=== PATIENT | male | born 1980 | race Caucasian/White ===

== ENCOUNTER 2021-01-14 00:15 | Emergency (ER) | payer OTHER, SELFPAY ==
[2021-01-14 00:40] VITALS: BP 142/87; PULSE 110; RESP 20; TEMP 36.3; O2SAT 96
[2021-01-14 01:03] LABS: Basophils Percent Auto 0.1 % (0.2-1.2); Eosinophils Absolute Auto 0.1 K/mm3 (0-0.3); Eosinophils Percent Auto 0.8 % (0-4.4); Hematocrit 46.8 % (42.0-52.0); Hemoglobin 16.2 g/dL (14.0-18.0); Immature Granulocyte Absolute 0.03 K/mm3 (0.00-0.031); Immature Granulocyte Percent A 0.4 % (0-0.5); Lymphocytes Absolute Auto 1.08 K/mm3 (0.9-3.2); Mean Corpuscular HGB Conc 34.6 g/dl (32-36); Mean Corpuscular Hemoglobin 31.1 pg (26-34); Mean Corpuscular Volume 89.8 fl (80-100); Mean Platelet Volume 11.6 fl (7.4-10.4); Monocytes Absolute Auto 0.7 K/mm3 (0.1-0.6); Monocytes Percent Auto 8.1 % (2.6-8.5); Neutrophils Absolute Auto 6.5 K/mm3 (1.3-6.7); Neutrophils Percent Auto 77.6 % (45.5-73.1); Platelet Count Result 173 k/mm3 (150-375); Red Blood Count 5.21 M/mm3 (4.6-6.20); Red Cell Distribution Width 13.1 % (11.5-14.5); White Blood Count 8.3 K/mm3 (4.5-10.0)
--- NOTE | 2021-01-14 01:06 | ED.NAVMDI ---
HPI - Nausea/Vomiting/Diarrhea General Chief complaint: Nausea/Vomiting/Diarrhea Stated complaint: n/v/d Time Seen by Provider: 01/14/21 01:05 Source: patient Mode of arrival: ambulatory Limitations: no limitations History of Present Illness HPI Narrative: Patient is a 40-year-old male complaining of nausea vomiting and diarrhea accompanied by cough that started 3 days ago. Patient states that his vomit is nonbilious nonbloody. Patient describes diarrhea as loose watery, nonbloody. Patient's cough is productive with white, yellowish sputum. Patient denies any chest pain, shortness of breath, abdominal pain, fever or chills. Patient currently denies any nausea, just worried more about his diarrhea. Related Data Home Medications Medication Instructions Recorded Confirmed hydrocodone-acetaminophen 1 tablet PO Q12H PRN 09/12/19 Allergies Allergy/AdvReac Type Severity Reaction Status Date / Time amoxicillin Allergy Intermediate Itching Verified 09/12/19 12:54 clavulanic acid Allergy Intermediate Itching Verified 09/12/19 12:54 Review of Systems Review of Systems: All systems reviewed & are unremarkable except as noted in HPI and below Constitutional: Constitutional: Denies body ache(s), Denies chills, Denies excessive sweating, Denies fatigue, Denies fever(s), Denies headache(s), Denies lethargy, Denies malaise, Denies weakness and Denies weight loss Eyes: Eyes: Denies blurry vision, Denies change in vision and Denies loss of vision ENT: Denies dizziness, Denies ear discharge, Denies headache(s), Denies lip swelling, Denies epistaxis, Denies nasal congestion, Denies neck pain, Denies throat swelling and Denies tongue swelling Cardiovascular: Cardiovascular: Denies chest pain, Denies chest pain at rest, Denies chest pain with activity, Denies diaphoresis, Denies rapid heart rate, Denies edema, Denies irregular heart rhythm, Denies lightheadedness, Denies palpitations, Denies dyspnea and Denies dyspnea on exertion Respiratory: Respiratory: Denies chest congestion, Denies hemoptysis, Denies dyspnea and Denies dyspnea on exertion Gastrointestinal: Gastrointestinal: Denies abdominal pain, Denies melena, Denies hematochezia and Denies hematemesis Musculoskeletal: Musculoskeletal: Denies abnormal gait, Denies deformity, Denies joint swelling, Denies limited range of motion, Denies neck pain and Denies numbness Neurologic: Denies Abnormal speech present, Denies abnormal gait, Denies confusion, Denies dizziness, Denies headache(s), Denies focal weakness, Denies loss of vision, Denies numbness, Denies Other visual disturbances, Denies Sensory deficit (Neuro) and Denies weakness Psychiatric: Psychiatric: Denies confusion, Denies depression, Denies auditory hallucinations, Denies homicidal ideation and Denies suicidal ideation Endocrine: Endocrine: Denies cold intolerance, Denies excessive sweating, Denies fatigue, Denies heat intolerance and Denies palpitations Hematologic/Lymphatic: Hematologic/Lymphatic: Denies easy bleeding and Denies easy bruising Allergic/Immunologic: Allergic/Immunologic: Denies lip swelling, Denies throat swelling and Denies tongue swelling PMFSH Comments Past medical history: None Family history: Noncontributory Social history positive for smoker, occasional EtOH use, denies any drug use Exam Const: General: cooperative, healthy appearing, comfortable, no acute distress, well developed, alert and awake; No confusion Orientation/consciousness: oriented to person, oriented to place, oriented to time, patient oriented x3 and No confusion Limitations: no limitations HENMT: Head: normal to inspection, normocephalic and atraumatic Ears: hearing grossly normal bilaterally, TM normal on the right and TM normal on the left General nose exam: Normal external nose present, Normal nares present and No nasal discharge present Face and sinus: normal facial exam Mouth: Yes Normal oral and palatal mucosa present, Yes lip
[2021-01-14 01:29] LABS: Alanine Aminotransferase 27 U/L (4-50); Albumin Level 4.5 g/dL (3.5-5.1); Alkaline Phosphatase 83 U/L (38-126); Anion Gap 10 mmol/L (8-16); Aspartate Amino Transferase 26 U/L (17-59); Bilirubin,Total 0.3 mg/dL (0.2-1.3); Blood Urea Nitrogen 19 mg/dL (9-20); Calcium 9.1 mg/dL (8.4-10.2); Carbon Dioxide 24 mmol/L (22-30); Chloride 105 mmol/L (98-107); Estimated CRCL calculation 102 ml/min; Estimated Glomerular Filt Rate > 60; Glucose 106 mg/dL (75-110); Lipase 47 U/L (23-300); Potassium 3.8 mmol/L (3.4-5.0); Sodium 139 mmol/L (137-145)
[2021-01-14 01:43] LABS: Add Urine Microscopic? YES; Appearance Urine Cloudy (Clear); Bilirubin Urine Negative (Negative); Blood Urine Negative (Negative); Color Urine Yellow (Yellow); Glucose Urine UA Negative (Negative); Ketones Urine Negative (Negative); Leukocyte Esterase Ur Negative LEU/UL (Negative); Mucus Urine Few /lpf; Nitrate Urine Negative (Negative); Protein Urine 1+ mg/dL (Negative); RBC Urine 0-2 /hpf (0-2); Urobilinogen Urine Negative mg/dL (<2.0); WBC Urine 0-3 /hpf
[2021-01-14 01:55] LABS: Specific Grav Ur 1.031 (1.001-1.035)
[2021-01-14] MEDS: SODIUM CHLORIDE 0.9% IV 1,000 ML 999 ML IV CONT (02:01)
[2021-01-14] MEDS: LOPERAMIDE HCL 2 MG CAPSULE 4 MG PO (02:06)
[2021-01-14 03:25] VITALS: BP 105/67; PULSE 95; RESP 16; O2SAT 98
== END 2021-01-14 03:23 | disposition home or self-care (01) ==
PROVIDERS: Emergency Provider Emergency Medicine
DX: A08.4 Viral intestinal infection, unspecified (principal); F17.210 Nicotine dependence, cigarettes, uncomplicated
CPT/HCPCS: 36415; 80053; 81001; 83690; 85025; 96360; 99283; A9270; J7030

== ENCOUNTER 2021-01-20 20:42 | Emergency (ER) | payer OTHER, SELFPAY ==
--- NOTE | ~2021-01-20 | XR_ITS ---
EXAMINATION: XR chest 1V portable DATE: 01/20/2021 21:37 INDICATION: Hemoptysis. Sore throat. TECHNIQUE: A single frontal view of the chest was obtained. COMPARISON: Chest 2 views 09/12/2019 FINDINGS: There are mild airspace opacities in the midlung zones bilaterally. No pleural effusion or pneumothorax. The heart size is normal. IMPRESSION: 1. Mild airspace opacities in the midlung zones, consistent with atelectasis versus pneumonia. Reviewed, dictated and finalized at location A. IMPRESSION: 1. Mild airspace opacities in the midlung zones, consistent with atelectasis ve rsus pneumonia.
[2021-01-20 20:46] VITALS: BP 138/83; PULSE 84; RESP 18; TEMP 36.4; O2SAT 95
--- NOTE | 2021-01-20 22:04 | ED.GENADULT ---
HPI - General Adult General Chief complaint: Upper Respiratory Infection Stated complaint: sore throat and ear pain Time Seen by Provider: 01/20/21 21:20 History of Present Illness HPI narrative: Patient is a 40-year-old gentleman who presents the emergency department with chief complaint of cough and sore throat and ear pain. The patient reports for the last several days he has been coughing and has had some blood-streaked sputum. The patient denies fevers reports he has had a little bit of a sore throat and has had pressure in his ears. Patient denies nausea vomiting reports that he has not had COVID-19. Patient also reports that has not had the vaccine for COVID-19. Related Data Allergies Allergy/AdvReac Type Severity Reaction Status Date / Time amoxicillin Allergy Intermediate Itching Verified 01/20/21 20:49 clavulanic acid Allergy Intermediate Itching Verified 01/20/21 20:49 Review of Systems Review of Systems: Narrative: A 10 system review of systems was completed on the patient and is negative except for what is stated in the HPI. Nursing and ancillary documentation was reviewed. [facility] Social History Social History Gender identity (if verbalized by the patient): Male Exam Narrative: Exam Narrative: GENERAL: Well-appearing, well-nourished, and in no acute distress. HEAD: Normocephalic, atraumatic. EYES: PERRLA and EOMI. ENT: Nares clear, no rhinorrhea or epistaxis. Mucous membranes moist. There is erythema of the left tympanic membrane. NECK: Supple. CHEST: Clear to auscultation. No respiratory distress. HEART: Regular rate and rhythm. No murmur heard. Normal peripheral pulses. ABDOMEN: Soft, nontender, nondistended, normal active bowel sounds. EXTREMITIES: Normal range of motion. No edema. SKIN: Warm, dry, no rash. NEURO: No focal deficits. Alert and oriented x3. PSYCH: Normal mood and affect. Course Vital Signs Vital signs: Vital Signs Temperature 36.4 C 01/20/21 20:46 Pulse Rate 84 01/20/21 20:46 Respiratory Rate 18 01/20/21 20:46 Blood Pressure 138/83 01/20/21 20:46 Pulse Oximetry 95 01/20/21 20:46 Temperature 36.4 C 01/20/21 20:46 Pulse Rate 84 01/20/21 20:46 Respiratory Rate 18 01/20/21 20:46 Blood Pressure 138/83 01/20/21 20:46 Pulse Oximetry 95 01/20/21 20:46 Medical Decision Making Vital Signs Vital Signs: Vital Signs Temperature 36.4 C 01/20/21 20:46 Pulse Rate 84 01/20/21 20:46 Respiratory Rate 18 01/20/21 20:46 Blood Pressure 138/83 01/20/21 20:46 Pulse Oximetry 95 01/20/21 20:46 Temperature 36.4 C 01/20/21 20:46 Pulse Rate 84 01/20/21 20:46 Respiratory Rate 18 01/20/21 20:46 Blood Pressure 138/83 01/20/21 20:46 Pulse Oximetry 95 01/20/21 20:46 Lab Data Labs: Strep Screen Presumptive Negative *(Reference Range: Negative)* Discharge Plan Discharge Clinical Impression: Pneumonia Qualifiers: Pneumonia type: due to unspecified organism Laterality: unspecified laterality Lung location: unspecified part of lung Qualified Code(s): J18.9 - Pneumonia, unspecified organism Otitis media Qualifiers: Otitis media type: unspecified Chronicity: acute Qualified Code(s): H66.90 - Otitis media, unspecified, unspecified ear Patient Disposition: Home, Self-Care Condition: Stable Instructions: Antibiotic Form, Ear Infection (GEN), Community Acquired Pneumonia (DC) Prescriptions: New cefdinir 300 mg capsule 300 mg PO Q12H Qty: 20 RF: 0 azithromycin [Zithromax Z-Tima] 250 mg tablet See Rx Instructions .ROUTE .COMPLEX Qty: 6 RF: 0 benzonatate 200 mg capsule 200 mg PO TID PRN (Reason: cough) Qty: 21 RF: 0 Follow-up/Referrals: PHYSICIAN,KILN HEAD HOUSE OPERATOR [Primary Care Provider] - Ray Nieves MD [Physician] - 1 Week Time of Disposition: 22:07
[2021-01-20 22:42] VITALS: BP 132/81; PULSE 83; RESP 18; O2SAT 96
[2021-01-20] MEDS: CEFDINIR 300 MG CAPSULE PO (22:42)
[2021-01-21 18:42] LABS: SARS-CoV-2 RNA PCR Negative
== END 2021-01-20 22:42 | disposition home or self-care (01) ==
PROVIDERS: Emergency Provider Emergency Medicine
DX: J18.9 Pneumonia, unspecified organism (principal); H66.92 Otitis media, unspecified, left ear; Z20.822 Contact with and (suspected) exposure to COVID-19
CPT/HCPCS: 71045; 87081; 87880; 99283; A9270; C9803; U0003; U0005

== ENCOUNTER 2021-09-11 03:19 | Emergency (ER) | payer OTHER, SELFPAY ==
[2021-09-11 03:22] VITALS: BP 126/82; PULSE 99; RESP 18; TEMP 36.2; O2SAT 95
[2021-09-11 04:13] VITALS: BP 121/70; PULSE 78; RESP 20; TEMP 36.9; O2SAT 95
--- NOTE | 2021-09-11 04:39 | ED.GENADULT ---
HPI - General Adult General Chief complaint: Upper Respiratory Infection Stated complaint: green productive cough Time Seen by Provider: 09/11/21 04:08 History of Present Illness HPI narrative: Patient is a 41-year-old male who presents with sinus congestion. Ongoing for 3 weeks. Reports typically it goes away on its own but this is not improved. Has had postnasal drip. Mucus is changing color to green. No fevers or chills or sweats. No facial pain. She has tried Vicks VapoRub without relief. No loss of taste or smell. Related Data Allergies Allergy/AdvReac Type Severity Reaction Status Date / Time amoxicillin Allergy Intermediate Itching Verified 09/11/21 04:16 clavulanic acid Allergy Intermediate Itching Verified 09/11/21 04:16 Review of Systems Constitutional: Constitutional: Denies chills, Denies fever(s) and Denies weakness ENT: Reports nasal congestion and Denies sore throat Respiratory: Respiratory: Denies chest congestion, Reports cough, Denies dyspnea and Denies wheezing Gastrointestinal: Gastrointestinal: Denies abdominal pain, Denies nausea and Reports vomiting (Post tussive) [facility] Past Medical History Medical History (Updated 09/11/21 @ 04:50 by Manuel Mir MD) Healthy adult male Surgical History Surgical History (Updated 09/11/21 @ 04:41 by Manuel Mir MD) No history of previous surgery Social History Social History (Updated 09/11/21 @ 04:41 by Manuel Mir MD) Smoking status: Current every day smoker Gender identity (if verbalized by the patient): Male Exam Narrative: GENERAL: Well-appearing, well-nourished, and in no acute distress. HEAD: Normocephalic, atraumatic. ENT: Mucous membranes moist. No sinus tenderness. TMs normal bilaterally with your canals free of cerumen. NECK: Supple. CHEST: Clear to auscultation. No respiratory distress. HEART: Regular rate and rhythm. Normal peripheral pulses. EXTREMITIES: Normal range of motion. No edema. NEURO: Alert and oriented x3. PSYCH: Normal mood and affect. Course Course Emergency Course: Discharge home with antibiotics for sinusitis as well as supportive care. Vital Signs Vital signs: Vital Signs Temperature 97.1 F L 09/11/21 03:22 Pulse Rate 99 09/11/21 03:22 Respiratory Rate 18 09/11/21 03:22 Blood Pressure 126/82 09/11/21 03:22 Pulse Oximetry 95 09/11/21 03:22 Temperature 98.4 F 09/11/21 04:13 Pulse Rate 78 09/11/21 04:13 Respiratory Rate 20 09/11/21 04:13 Blood Pressure 121/70 09/11/21 04:13 Pulse Oximetry 95 09/11/21 04:13 Medical Decision Making Vital Signs Vital Signs: Vital Signs Temperature 97.1 F L 09/11/21 03:22 Pulse Rate 99 09/11/21 03:22 Respiratory Rate 18 09/11/21 03:22 Blood Pressure 126/82 09/11/21 03:22 Pulse Oximetry 95 09/11/21 03:22 Temperature 98.4 F 09/11/21 04:13 Pulse Rate 78 09/11/21 04:13 Respiratory Rate 20 09/11/21 04:13 Blood Pressure 121/70 09/11/21 04:13 Pulse Oximetry 95 09/11/21 04:13 Discharge Plan Discharge Clinical Impression: Sinusitis Patient Disposition: Home, Self-Care Condition: Stable Instructions: Antibiotic Form, Sinusitis (ED) Additional Instructions: Return to the ER if you cannot breathe, you cannot swallow, you have chest pain or shortness of breath, you have additional concerns. Prescriptions: New sulfamethoxazole-trimethoprim [Bactrim DS] 800-160 mg tablet 1 tablet PO Q12H Qty: 14 RF: 0 pseudoephedrine-guaifenesin [Mucinex D Maximum Strength] 120-1,200 mg tablet extended release 12 hr 1 tablet PO Q12H PRN (Reason: cold symptoms) Qty: 14 RF: 0 No Action cefdinir 300 mg capsule 300 mg PO Q12H Qty: 20 RF: 0 azithromycin [Zithromax Z-Tima] 250 mg tablet See Rx Instructions .ROUTE .COMPLEX Qty: 6 RF: 0 benzonatate 200 mg capsule 200 mg PO TID PRN (Reason: cough) Qty: 21 RF: 0 Follow-up/Referrals: PHYSICIAN,MANAGER BALANCE [Prima
[2021-09-11 05:11] VITALS: BP 111/66; PULSE 90; RESP 14; O2SAT 95
== END 2021-09-11 05:12 | disposition home or self-care (01) ==
PROVIDERS: Emergency Provider Emergency Medicine
DX: J32.9 Chronic sinusitis, unspecified (principal); F17.200 Nicotine dependence, unspecified, uncomplicated
CPT/HCPCS: 99283

== ENCOUNTER 2022-02-01 15:57 | Emergency (ER) | payer OTHER, SELFPAY ==
[2022-02-01 15:59] VITALS: BP 149/83; PULSE 86; RESP 18; TEMP 36.9; O2SAT 99
--- NOTE | 2022-02-01 16:40 | ED.SKABFB ---
HPI - Skin/Abscess/Foreign Bdy General Chief complaint: Skin/Abscess/Foreign Body Stated complaint: abcess to back of neck Time Seen by Provider: 02/01/22 16:35 History of Present Illness HPI narrative: 41-year-old male presents the emergency room complaints of an abscess to his posterior cervical spine for 1 month. Patient states the abscess grew larger recently, and began to drain. Related Data Allergies Allergy/AdvReac Type Severity Reaction Status Date / Time amoxicillin Allergy Intermediate Itching Verified 02/01/22 16:07 clavulanic acid Allergy Intermediate Itching Verified 02/01/22 16:07 Review of Systems Review of Systems: CONSTITUTIONAL: Denies fever, chills, or sweats. EYES: Denies visual changes, redness, or discharge. ENT: Denies rhinorrhea, congestion, sore throat, or otalgia. CARDIOVASCULAR: Denies chest pain, palpitations, or edema. RESPIRATORY: Denies cough or dyspnea. GASTROINTESTINAL: Denies abdominal pain, nausea, vomiting, or diarrhea. GENITOURINARY: Denies dysuria or hematuria. SKIN: Reports abscess to posterior cervical spine MUSCULOSKELETAL: Denies back pain, joint pain, or myalgia. NEUROLOGIC: Denies headache, numbness, dizziness, or weakness. PSYCHIATRIC: Denies anxiety or depression. [facility] Past Medical History Medical History Healthy adult male Surgical History Surgical History No history of previous surgery Social History Social History Smoking status: Current every day smoker Gender identity (if verbalized by the patient): Male Exam Narrative: GENERAL: Well-appearing, well-nourished, and in no acute distress. HEAD: Normocephalic, atraumatic. EYES: PERRLA and EOMI. ENT: Nares clear, no rhinorrhea or epistaxis. Mucous membranes moist. Oropharynx without tonsillar hypertrophy exudate or other lesions. Bilateral TMs pearly bahena nonbulging NECK: Supple. No adenopathy or masses. No carotid bruits or JVD CHEST: Clear to auscultation. No respiratory distress. No wheezes rales or rhonchi HEART: Regular rate and rhythm. No murmur heard. Normal peripheral pulses. ABDOMEN: Soft, nontender, nondistended, normal active bowel sounds. EXTREMITIES: Normal range of motion. No edema. SKIN: Cervical spine: Sick centimeter area of induration with overlying crusting NEURO: No focal deficits. Alert and oriented x3. PSYCH: Normal mood and affect. Course Vital Signs Vital signs: Vital Signs Temperature 36.9 C 02/01/22 15:59 Pulse Rate 86 02/01/22 15:59 Respiratory Rate 18 02/01/22 15:59 Blood Pressure 149/83 H 02/01/22 15:59 Pulse Oximetry 99 02/01/22 15:59 Temperature 36.9 C 02/01/22 15:59 Pulse Rate 86 02/01/22 15:59 Respiratory Rate 18 02/01/22 15:59 Blood Pressure 149/83 H 02/01/22 15:59 Pulse Oximetry 99 02/01/22 15:59 Procedures Abscess I/D neck: Date of Incision: 02/01/22 Time of Incision: 17:41 Local Anesthetic: lidocaine 1% and with epi Amount of anesthesia used (mL): 4 Technique: incised with #11 blade Amount of fluid expressed (mL): 1 Irrigation: Yes Packing used?: none I&D Results: Blood Discharge Plan Discharge Clinical Impression: Abscess of skin or subcutaneous tissue Qualifiers: Site of cutaneous abscess: neck Qualified Code(s): L02.11 - Cutaneous abscess of neck Patient Disposition: Home, Self-Care Condition: Stable Instructions: Antibiotic Form, Abscess (ED) Prescriptions: New clindamycin HCl 300 mg capsule 300 mg PO Q8H 7 Days Qty: 21 RF: 0 Follow-up/Referrals: PHYSICIAN,ENGINEERING TECHNOLOGIST [Primary Care Provider] - Time of Disposition: 17:43
== END 2022-02-01 17:54 | disposition home or self-care (01) ==
PROVIDERS: Emergency Provider Nurse Practitioner Family
DX: L02.11 Cutaneous abscess of neck (principal); F17.200 Nicotine dependence, unspecified, uncomplicated
CPT/HCPCS: 10060; 99283

== ENCOUNTER 2023-11-17 10:57 | Emergency (ER) | payer OTHER, SELFPAY ==
[2023-11-17 10:59] VITALS: BP 127/82; PULSE 87; RESP 18; TEMP 36.1
--- NOTE | 2023-11-17 13:14 | ED.WOUNDLAC ---
HPI - Wound/Laceration General Chief Complaint: Wound/Laceration Stated Complaint: painful cyst on back Time Seen by Provider: 11/17/23 11:31 History of Present Illness HPI narrative: 43-year-old male presents to emergency department for an abscess to his right upper back x6 days. Patient states he felt a pop in his back a few days ago and noticed redness and pain which prompted her to come to the ER. He reports nausea and chills but denies known fever or vomiting. History of the same a few years ago where he had an I&D and took clindamycin with improvement. He does not have a PCP. Related Data Allergies Allergy/AdvReac Type Severity Reaction Status Date / Time amoxicillin Allergy Intermediate Itching Verified 11/17/23 11:05 clavulanic acid Allergy Intermediate Itching Verified 11/17/23 11:05 Review of Systems Review of Systems: CONSTITUTIONAL: See HPI EYES: Denies visual changes, redness, or discharge. ENT: Denies rhinorrhea, congestion, sore throat, or otalgia. CARDIOVASCULAR: Denies chest pain, palpitations, or edema. RESPIRATORY: Denies cough or dyspnea. GASTROINTESTINAL: Denies abdominal pain, nausea, vomiting, or diarrhea. GENITOURINARY: Denies dysuria or hematuria. SKIN: See HPI MUSCULOSKELETAL: Denies back pain, joint pain, or myalgia. NEUROLOGIC: Denies headache, numbness, or weakness. PSYCHIATRIC: Denies anxiety or depression. [facility] Past Medical History Medical History Healthy adult male Surgical History Surgical History No history of previous surgery Social History Social History Smoking status: Current every day smoker Gender identity (if verbalized by the patient): Male Exam Narrative: GENERAL: Well-appearing, well-nourished, and in no acute distress. Nontoxic appearing. HEAD: Normocephalic, atraumatic. EYES: PERRLA and EOMI. ENT: Nares clear, no rhinorrhea or epistaxis. Mucous membranes moist. NECK: Supple. CHEST: Clear to auscultation. No respiratory distress. HEART: Regular rate and rhythm. No murmur heard. Normal peripheral pulses. ABDOMEN: Soft, nontender, nondistended, normal active bowel sounds. EXTREMITIES: Normal range of motion. No edema. SKIN: 2 cm area fluctuation that is actively draining to the right upper back with approximately 8 cm of induration 14 cm of surrounding warmth and erythema. No extension over the spine. No crepitus or bullae NEURO: No focal deficits. Alert and oriented x3 Course Vital Signs Vital signs: Vital Signs Temperature 97.0 F L 11/17/23 10:59 Pulse Rate 87 11/17/23 10:59 Respiratory Rate 18 11/17/23 10:59 Blood Pressure 127/82 11/17/23 10:59 Temperature 97.0 F L 11/17/23 10:59 Pulse Rate 87 11/17/23 10:59 Respiratory Rate 18 11/17/23 10:59 Blood Pressure 127/82 11/17/23 10:59 Procedures Abscess I/D back: Date of Incision: 11/17/23 Side (if applicable): right Local Anesthetic: lidocaine 1% and with epi Amount of anesthesia used (mL): 5 Technique: incised with #11 blade Amount of fluid expressed (mL): 6 Irrigation: No Packing used?: none I&D Results: Pus and Blood MDM - Wound/Laceration MDM Narrative Medical decision making narrative: 43-year-old male presents to emergency department for an abscess with surrounding cellulitis to his right upper back x6 days. See HPI for further history. Triage vitals stable. Exam is significant for the above. He is nontoxic appearing. I&D performed with purulence expressed. Cellulitis outlined with a skin marker and dressing applied. Will start the patient on clindamycin given improvement with this in the past. First dose and Villanueva provided here. Encouraged close follow-up with PCP, referral provided. Strict ED return precautions discus
[2023-11-17] MEDS: CLINDAMYCIN HCL 150 MG CAP 300 MG PO (13:29)
[2023-11-17] MEDS: HYDROcodone/acetaminophen (*CRX) 5-325 MG TABLET 1 TAB PO (13:29)
[2023-11-17 13:38] VITALS: BP 121/76; PULSE 87; RESP 18; O2SAT 100
== END 2023-11-17 13:40 | disposition home or self-care (01) ==
PROVIDERS: Emergency Provider Physician Assistant
DX: L02.212 Cutaneous abscess of back [any part, except buttock and flank] (principal); L03.312 Cellulitis of back [any part except buttock and flank]; F17.200 Nicotine dependence, unspecified, uncomplicated
CPT/HCPCS: 10060; 99283; A9270